=== PATIENT | male | born 1965 | race Caucasian/White ===

== ENCOUNTER 2022-08-24 10:07 | Emergency (ER) | payer OTHER ==
[~2022-08-24] VITALS: Ht 185.4 cm; Wt 109.1 kg
[~2022-08-24 10:07] MED LIST: CETI-450 PO; MULT-1203
[2022-08-24] MEDS ORDERED: LISI-893 PO (10:23)
[2022-08-24] MEDS ORDERED: HYDROCODONE/ACETAMINOPHEN 5-325 MG TABLET PO ONE (12:15)
[2022-08-24] MEDS ORDERED: IBUPROFEN 600 MG TABLET PO ONE (12:15)
[2022-08-24] MEDS ORDERED: LIDOCAINE 1% 10 ML VIAL SQ ONE (12:15)
[2022-08-24] MEDS ORDERED: CEPHALEXIN MONOHYDRATE 500 MG CAPSULE PO ONE (13:15)
[2022-08-24] MEDS ORDERED: DOXYCYCLINE HYCLATE 100 MG TABLET PO ONE (13:15)
[2022-08-24] MEDS ORDERED: HYDR-4723 PO (13:17)
[2022-08-24] MEDS ORDERED: DOXY-354 PO (13:17)
[2022-08-24] MEDS ORDERED: IBUP-1554 PO (13:17)
[2022-08-24] MEDS ORDERED: CEPH-558 PO (13:17)
[2022-08-24 13:51] VITALS: BP 137/86
== END 2022-08-24 13:53 | disposition home or self-care (01) ==
LOC: EMS 10:09
DX: L02.11 Cutaneous abscess of neck (principal); L72.3 Sebaceous cyst; Z90.49 Acquired absence of other specified parts of digestive tract
CPT/HCPCS: 99284; 10060; J3490